=== PATIENT | female | born 1960 ===

== ENCOUNTER 2021-02-17 06:00 | Outpatient (RCR) | payer OTHER, SELFPAY | END 2021-03-18 23:59 | disposition home or self-care (01) | LOC: APT 06:00 | PROVIDERS: Referring Provider Physical Medicine & Rehabilitation; Visit Provider Physical Medicine & Rehabilitation | DX: M54.5 Low back pain (principal); M25.552 Pain in left hip; M79.662 Pain in left lower leg | CPT/HCPCS: 97110; 97161 ==

== ENCOUNTER → 2022-11-03 11:41 | Outpatient (BNVA) | payer OTHER, SELFPAY | PROVIDERS: Visit Provider Nurse Practitioner Family | DX: M79.605 Pain in left leg (principal); L08.9 Local infection of the skin and subcutaneous tissue, unspecified; T14.8XXA Other injury of unspecified body region, initial encounter; X58.XXXA Exposure to other specified factors, initial encounter | CPT/HCPCS: 73590; 85025; 87070; 87077; 87184 ==